=== PATIENT | female | born 1990 | race Caucasian/White ===

== ENCOUNTER 2024-03-10 15:55 | Emergency (ER) | payer OTHER ==
[~2024-03-10] VITALS: Ht 157.5 cm; Wt 77.1 kg
[2024-03-10] MEDS: IBUPROFEN 400 MG TABLET PO ONE (17:30)
[2024-03-10] MEDS ORDERED: IBUPROFEN 400 MG TABLET ONE (17:30)
[2024-03-10] MEDS ORDERED: NAPR-1164 PO (17:44)
[2024-03-10 17:47] VITALS: BP 110/66; TEMP 98.3; O2SAT 96
== END 2024-03-10 17:47 | disposition home or self-care (01) ==
LOC: ER 16:02
DX: S29.011A Strain of muscle and tendon of front wall of thorax, initial encounter (principal); R05.9 Cough, unspecified; R07.81 Pleurodynia; Z88.0 Allergy status to penicillin; X58.XXXA Exposure to other specified factors, initial encounter; Y93.89 Activity, other specified; Y92.89 Other specified places as the place of occurrence of the external cause; Y99.8 Other external cause status
CPT/HCPCS: 71100-TC; 84703-TC